=== PATIENT | female | born 1995 | race Caucasian/White ===

== ENCOUNTER 2019-02-03 11:14 | Observation (INO) | payer BC ==
[~2019-02-03] VITALS: Ht 167.6 cm; Wt 54.9 kg
--- OUTSIDE RECORDS SUMMARY | 2019-02-03 11:16 | XMS REPORT | Encounter Summary ---
Author Organization Unknown Address [address] [place] [address] Phone [phone] Reason for Visit Medical Complaint Instructions 1. Streptococcal sore throat strep throat: care instructions azithromycin 250 mg tablet rapid strep group A, throat Discussion Note Increase rest and drink plenty of fluids. May use acetaminophen (ex: Tylenol) or ibuprofen (ex: Motrin) as indicated on package for pain, bodyaches and/or fever. May use Chloraseptic throat spray or mentholated throat lozenges for soothing. Warm salt water gargles 3-4 times a day. (Mix cup warm water with Tsp of salt) Take medication(s) as prescribed for the indicated length of time. If no improvement in 3-5 days, or if new or worsening symptoms develop, follow up with a primary care physician. Start using a new toothbrush after second day of antibiotics. Plan of Care Patient Instructions See handout Reminders Provider Appointments None recorded. Lab Rapid Strep Group a, Throat 05/09/2017 [facility] Referral None recorded. Procedures None recorded. Surgeries None recorded. Imaging None recorded. Medications Name Start Date Adderall XR 30 mg capsule,extended release azithromycin 250 mg tablet TAKE 2 TABLETS (500 MG) BY ORAL ROUTE ONCE DAILY FOR 1 DAY THEN 1 TABLET (250 MG) BY ORAL ROUTE ONCE DAILY FOR 4 DAYS dicyclomine 20 mg tablet Gianvi (28) 3 mg-20 mcg tablet metronidazole 500 mg tablet Medications Administered None recorded. Vitals Height Weight BMI Blood Pressure 5 ft 5 in 122 lbs 20.3 kg/m2 114/72 mm[Hg] Lab Results Date Name Specimen Result Interpretation Description Value Range Status Address Rapid Strep Group a, Throat Result positive [facility]: [address] [place] [address] Swab Location Left and Right tonsillar pillars [facility]: [address] [place] [address] Allergies Code Code System Name Reaction Severity Onset Penicillins Hives Severe Problems None recorded. Procedures None recorded. Vaccine List None recorded. Social History Smoking Status Never Smoker Past Encounters 05/09/2017 Streptococcal Sore Throat Guillermo Carpenter, FEATHER BONER: [address], [place] [address], Ph. History of Present Illness Throat-Oral Complaint Reported By: Patient HPI: Location: throat. Quality: sore throat. Severity: pain level 9/10. Duration: 1 days. Onset/Timing: sudden. Context: no foreign travel, non-smoker, sick contact. Modifying factors: OTC medication. Associated Symptoms: no fever, no headache, no body aches, no sputum production, no shortness of breath, no wheezing, no change in number of pillows needed to sleep at night, no sweats, no significant weight gain, no significant weight loss, no morning cough, no vomiting, no diarrhea, no rash, no nausea, fever, sore throat Review of Systems:ROS as noted in the HPI Review of Systems Basic Reported By: Patient Physical Exam Adult Basic Reported By: Patient Constitutional: General Appearance: healthy-appearing, well-nourished, well-developed. Level of Distress: NAD. Ambulation: ambulating normally Psychiatric: Mental Status: active and alert. Orientation: to time, to place, to person Eyes: Lids and Conjunctivae: non-injected, no discharge, no pallor. Pupils: PERRLA. Corneas: grossly intact. EOM: EOMI. Lens: clear. Sclerae: non-icteric. Vision: acuity grossly intact Jtk-Dgcu-Ksgju-Throat: Ears: no lesions on external ear, no outer ear tenderness, EACs clear, TMs clear. Hearing: no hearing loss. Nose: no lesions on external nose, nares patent, no septal deviation, nasal passages clear, no sinus tenderness, no nasal discharge. Lips, Teeth, and Gums: no mouth or lip ulcers, no bleeding gums, normal dentition. Oropharynx: moist mucous membranes, erythema, exudates, tonsils enlarged 2+ Neck: Neck: supple, trachea midline, no masses, FROM. Lymph Nodes: no cervical LAD, no supraclavicular LAD. Thyroid: no enlargement, non-tender, no nodules Lungs: Respiratory effort: no dyspnea, no tachypnea, no use of accessory muscles, no intercostal retractions. Auscultation: breath sounds normal Cardiovascular: Heart Auscultation: RRR, no murmurs Musculoskeletal:: Motor Strength and Tone: normal motor strength, normal tone. Joints, Bones, and Muscles: normal movement of all extremities Neurologic: Gait and Station: normal gait Skin: Inspection and palpation: no rash, no lesions, no ulcer, no abnormal nevi, no induration, no nodules, good turgor, no jaundice. Nails: normal
--- OUTSIDE RECORDS SUMMARY | 2019-02-03 11:16 | XMS REPORT | Continuity of Care Document ---
Author Author [facility] Interface Address Unknown Phone Unavailable Problems Problem Status Onset Date Classification Date Reported Comments Source Upper respiratory infection 01/18/2018 Diagnosis 01/18/2018 [facility] Tonsillitis 01/18/2018 Diagnosis 01/18/2018 [facility] Streptococcal sore throat 05/09/2017 Diagnosis 05/09/2017 [facility] Medications Medication Details Route Status Patient Instructions Ordering Provider Order Date Source 24 HR Amphetamine aspartate 7.5 MG / Amphetamine Sulfate 7.5 MG / Dextroamphetamine saccharate 7.5 MG / Dextroamphetamine Sulfate 7.5 MG Extended Release Oral Capsule [Adderall] Adderall XR 30 mg capsule,extended release TAKE ONE CAPSULE BY MOUTH EVERY DAY Active [facility] Azelastine hydrochloride 0.137 MG/ACTUAT Metered Dose Nasal [place] azelastine 137 mcg (0.1 %) nasal spray aerosol [place] 2 sprays in each nostril twice a day as needed Active [facility] Gianvi (28) 3 mg-20 mcg tablet Gianvi (28) 3 mg-20 mcg tablet Active [facility] Tretinoin 0.5 MG/ML Topical Cream tretinoin 0.05 % topical cream 1 APPLICATION TO AFFECTED AREA IN THE EVENING TO FACE ONCE A DAY PRN EXTERNALLY 30 DAYS Active [facility] Azithromycin 250 MG Oral Tablet Zithromax Z-Lamberto 250 mg tablet TAKE 2 TABLETS (500 MG) BY ORAL ROUTE ONCE DAILY FOR 1 DAY THEN 1 TABLET (250 MG) BY ORAL ROUTE ONCE DAILY FOR 4 DAYS Active [facility] Dicyclomine Hydrochloride 20 MG Oral Tablet dicyclomine 20 mg tablet Active [facility] Metronidazole 500 MG Oral Tablet metronidazole 500 mg tablet Active [facility] Allergies, Adverse Reactions, Alerts Substance Category Reaction Severity Reaction type Status Date Reported Comments Source Penicillins Hives Allergy to substance 05/09/2017 [facility] Immunizations Immunization Date Given Site Status Last Updated Comments Source Results Order Name Results Value Reference Range Date Interpretation Comments Source RESULT negative 01/17/2018 [facility] SWAB LOCATION Left and Right tonsillar pillars 01/17/2018 [facility] RESULT positive 05/09/2017 [facility] SWAB LOCATION Left and Right tonsillar pillars 05/09/2017 [facility] Vital Signs Vital Sign Value Date Comments Source Diastolic (mm Hg) 68 01/17/2018 [facility] Height 65 01/17/2018 [facility] Systolic (mm Hg) 110 01/17/2018 [facility] Weight 122 01/17/2018 [facility] Diastolic (mm Hg) 72 05/09/2017 [facility] Height 65 05/09/2017 [facility] Systolic (mm Hg) 114 05/09/2017 [facility] Weight 122 05/09/2017 [facility] Encounters Location Location Details Encounter Type Encounter Number Reason For Visit Attending Provider ADM Date DC Date Status Source [place] - [facility] - [id number] LINO Del RosarioP: [address] [place] [address], Ph. [id number] Guillermo Carpenter 05/09/2017 [facility] [place] [id number]ne[facility]: [address] [place] [address], Ph. [id number] Nila Berrios 01/17/2018 [facility] Procedures Procedure Code Date Perfomer Comments Source
--- OUTSIDE RECORDS SUMMARY | 2019-02-03 11:16 | XMS REPORT | Encounter Summary ---
Author Organization Unknown Address [address] [place] [address] Phone [phone] Reason for Visit Medical Complaint Instructions 1. Tonsillitis Zithromax Z-Lamberto 250 mg tablet 2. Upper respiratory infection azelastine 137 mcg (0.1 %) nasal spray aerosol rapid strep group A, throat Discussion Note *Use nasal saline rinse(Mani Med or Simply Saline): Use 2-3 times a day as needed for nasal congestion. *Drink plenty of fluids to stay hydrated. *Avoid known allergens. If you are not certain what is causing your allergies, [facility] offers allergy testing. *Take medication(s) as prescribed for the indicated length of time. *Drink plenty of fluids and get lots of rest. *May gargle with SCOPE OTC as needed. *May use acetaminophen (ex: Tylenol) or ibuprofen (ex: Motrin) as indicated on package for pain, bodyaches and/or fever. *May use Chloraseptic throat spray or mentholated throat lozenges for soothing. *Warm salt water gargles 3-4 times a day. (Mix cup warm water with Tsp of salt) *Take medication(s) as prescribed for the indicated length of time. *If no improvement in 3-5 days, or if new or worsening symptoms develop, follow up with a primary care physician. *Start using a new toothbrush. (If symptoms do not improve in 2 days or if throat pain worsens significantly or have white pus, start Zpak.) Patient educational handouts: No information available. Plan of Care Reminders Provider Appointments None recorded. Lab Rapid Strep Group a, Throat 01/17/2018 [facility] Referral None recorded. Procedures None recorded. Surgeries None recorded. Imaging None recorded. Medications Name Start Date Adderall XR 30 mg capsule,extended release TAKE ONE CAPSULE BY MOUTH EVERY DAY azelastine 137 mcg (0.1 %) nasal spray aerosol [place] 2 sprays in each nostril twice a day as needed Richard (28) 3 mg-20 mcg tablet tretinoin 0.05 % topical cream 1 APPLICATION TO AFFECTED AREA IN THE EVENING TO FACE ONCE A DAY PRN EXTERNALLY 30 DAYS Zithromax Z-Lamberto 250 mg tablet TAKE 2 TABLETS (500 MG) BY ORAL ROUTE ONCE DAILY FOR 1 DAY THEN 1 TABLET (250 MG) BY ORAL ROUTE ONCE DAILY FOR 4 DAYS Medications Administered None recorded. Vitals Height Weight BMI Blood Pressure 5 ft 5 in 122 lbs 20.3 kg/m2 110/68 mm[Hg] Lab Results Date Name Specimen Result Interpretation Description Value Range Status Address 01/17/2018 Rapid Strep Group a, Throat Result negative [facility]: [address] [place] [address] Swab Location Left and Right tonsillar pillars [facility]: [address] [place] [address] Allergies Code Code System Name Reaction Severity Status Onset Penicillins Hives Severe Active Problems None recorded. Procedures None recorded. Vaccine List None recorded. Social History Smoking Status Never Smoker Past Encounters 01/17/2018 Tonsillitis; Upper Respiratory Infection January MAGGIE BerriosC: [address] [place] [address], Ph. History of Present Illness Throat-Oral Complaint Reported By: Patient HPI: Location: throat. Quality: sore throat. Severity: moderate. Duration: 3 days. Onset/Timing: gradual. Context: no foreign travel, non-smoker, sick contact. [...] no rash, no nausea, fever, sore throat Note:Pt. is a 22 y.o. female here with sore throat x 3 days Pt. did not have flu shot [id number]. Review of Systems Basic Reported By: Patient Constitutional: Constitutional: fever Kjbq-Viam-Vspmb-Throat: Ears: no ear complaints. Nose: nose/sinus problems. Mouth/Throat: no bleeding gums, no mouth complaints, no teeth problems, sore throat Cardiovascular: Cardiovascular: no chest pain, no shortness of breath, no known heart murmur Respiratory: Respiratory: no cough, no wheezing, no shortness of breath Gastrointestinal: Gastrointestinal: no abdominal pain, no vomiting / diarrhea Physical Exam Adult Basic, Adult Female Complete, 14-21 Yr Females Reported By: Patient Constitutional: General Appearance: healthy-appearing, well-nourished, well-developed. Level of Distress: NAD. Ambulation: ambulating normally Psychiatric: Mental Status: active and alert, normal affect, normal mood. Orientation: to time, to place, to person Eyes: Lids and Conjunctivae: non-injected, no discharge, no pallor. Pupils: PERRLA, equal size, round, reactive to light. Corneas: grossly intact. EOM: EOMI, normal cover/uncover test. Lens: clear. Sclerae: non-icteric Qtg-Wcrv-Czbvg-Throat: Ears: no lesions on external ear, no outer ear tenderness, EACs clear; TM-mild dull bilaterally. Hearing: no hearing loss. Nose: no lesions on external nose, nares patent, no septal deviation, nasal passages clear, no sinus tenderness, post nasal drip; turbinates- pink bilaterally. Lips, Teeth, and Gums: no mouth or lip ulcers, no bleeding gums, normal dentition. Oropharynx: moist mucous membranes, no exudates, tonsils not enlarged, erythema Neck: Neck: supple, trachea midline, no masses, FROM. Lymph Nodes: anterior cervical LAD Lungs: Respiratory effort: no dyspnea, no tachypnea, no use of accessory muscles, no intercostal retractions. Auscultation: breath sounds normal, clear to auscultation, no wheezing, no rales/crackles, no rhonchi, no retractions Cardiovascular: Heart Auscultation: RRR, no murmurs, no gallops, no rub. Apical impulse: not displaced. Rate and rhythm: regular Skin: Inspection and palpation: no rash, no lesions, no ulcer, no abnormal nevi, no induration, no nodules, good turgor, no jaundice. Nails: normal. Color and Pigmentation: no acne, no pustules
[2019-02-03] MEDS ORDERED: SODIUM CHLORIDE 0.9% 1000ML 4,000 ML IV STA (11:27)
[2019-02-03 11:46] LABS: BILIRUBIN,URINE NEGATIVE (NEGATIVE); CLARITY,URINE SL CLOUDY (CLEAR); COLOR,URINE YELLOW (YELLOW); KETONES,URINE NEGATIVE (NEGATIVE); LEUKOCYTE ESTERASE ,URINE NEGATIVE (NEGATIVE); NITRITE,URINE NEGATIVE (NEGATIVE); PROTEIN,URINE DIPSTICK TRACE (NEGATIVE); URINE UROBILINOGEN 0.2 mg/dL (0.2 - 1)
[2019-02-03 11:53] LABS: BASOPHILS % 0.4 % (0.0-1.0); EOSINOPHILS # (AUTO) 0.1 (0.0-0.4); EOSINOPHILS % 1.3 % (0.0-6.0); HEMATOCRIT 42.5 % (34.2-44.1); HEMOGLOBIN 14.2 g/dL (12.0-16.0); LYMPHOCYTES # (AUTO) 2.4 (1.0-3.2); LYMPHOCYTES % 24.3 % (18.0-39.1); MEAN CORPUSCULAR HEMOGLOBIN 30.5 pg (28-32); MEAN CORPUSCULAR HGB CONC 33.4 g/dL (31-35); MEAN CORPUSCULAR VOLUME 91.4 fL (81-99); MONOCYTES # (AUTO) 0.4 (0.2-0.8); MONOCYTES % 3.9 % (4.4-11.3); NEUTROPHILS # (AUTO) 6.8 (2.1-6.9); NEUTROPHILS % 69.5 % (38.7-80.0); PLATELET COUNT 308 x10e3/uL (140-360); RED BLOOD COUNT 4.65 x10e6/uL (3.6-5.1); RED CELL DISTRIBUTION WIDTH 11.9 % (11.7-14.4)
[2019-02-03 12:11] LABS: BACTERIA,URINE MODERATE /HPF; EPITHELIAL CELLS,URINE MODERATE /LPF; RBC,URINE 0-5 /HPF (0-5); WBC,URINE (MAN) 0-5 /HPF (0-5)
[2019-02-03 12:17] LABS: ALANINE AMINOTRANSFERASE 637 IU/L (0-55); ALBUMIN 3.1 g/dL (3.5-5.0); ALBUMIN/GLOBULIN RATIO 0.7 (0.8-2.0); ALKALINE PHOSPHATASE 73 IU/L (40-150); ANION GAP 12.7 mmol/L (8-16); BLOOD UREA NITROGEN 13 mg/dL (7-26); BUN/CREATININE RATIO 18 (6-25); CARBON DIOXIDE 29 mmol/L (22-29); CHLORIDE 100 mmol/L (98-107); CHOL/HDL RATIO 2.8 (3.0-3.6); CHOLESTEROL 230 MD/DL (0-199); CREATININE, SERUM 0.74 mg/dL (0.57-1.11); EST GLOMERULAR FILTRATION RATE > 60 ML/MIN (60-); GLUCOSE 79 mg/dL (74-118); HDL CHOLESTEROL 81 MG/DL (40-60); LDL CHOLESTEROL 113 MG/DL (60-130); POTASSIUM 3.7 mmol/L (3.5-5.1); SODIUM 138 mmol/L (136-145); TRIGLYCERIDES 179 MG/DL (0-149)
[2019-02-03 12:20] LABS: PREGNANCY TEST, URINE NEGATIVE (NEGATIVE)
--- NOTE | 2019-02-03 12:24 | NUR ---
3RD LITER OF IVF HUNG AND INFUSING WITH NO PROBLME
--- NOTE | 2019-02-03 12:30 | NUR ---
4TH LITER OF N.S. BOLUS INFUSING
[2019-02-03] MEDS ORDERED: GIANVI 3 MG-0.1 EACH (12:59)
[2019-02-03] MEDS ORDERED: ADDERALL XR 3030 MG PO (12:59)
[2019-02-03 13:00] VITALS: BP 125/78
[2019-02-03 13:10] VITALS: BP 125/78
[2019-02-03] MEDS: SODIUM CHLORIDE 0.9% 1000ML 2,000 ML IV SCH ×2 (15:00→20:33)
[2019-02-03 16:00] VITALS: BP 120/68
--- NOTE | 2019-02-03 18:55 | NUR ---
rounded with assembler 1st shift nurse, patient aware of change. call brownlee within reach and bed in lowest position.
--- NOTE | 2019-02-03 19:01 | NUR ---
Report received and walking rounds complete. Pt A&O and in no apparent distress. Pt on room and tele. All safety measures ensured, bed alarm on, and call brownlee near. Pt encouraged to use call brownlee for assistance.
[2019-02-03 20:00] VITALS: BP 136/69
[2019-02-04] VITALS (7 sets, daily range): BP systolic 101–160; BP diastolic 55–72
[2019-02-04] MEDS: SODIUM CHLORIDE 0.9% 1000ML 2,000 ML IV SCH ×3 (04:21→20:35)
[2019-02-04] MEDS ORDERED: KETOROLAC TROMETHAMINE 30 MG/ML VIAL IV ONE (05:45)
[2019-02-04 06:40] LABS: ALANINE AMINOTRANSFERASE 342 IU/L (0-55); ALBUMIN 2.2 g/dL (3.5-5.0); ALBUMIN/GLOBULIN RATIO 0.9 (0.8-2.0); ALKALINE PHOSPHATASE 51 IU/L (40-150); ANION GAP 8.7 mmol/L (8-16); BLOOD UREA NITROGEN 9 mg/dL (7-26); BUN/CREATININE RATIO 16 (6-25); CALCIUM 7.7 mg/dL (8.4-10.2); CARBON DIOXIDE 21 mmol/L (22-29); CHLORIDE 113 mmol/L (98-107); CREATININE, SERUM 0.55 mg/dL (0.57-1.11); EST GLOMERULAR FILTRATION RATE > 60 ML/MIN (60-); GLUCOSE 89 mg/dL (74-118); POTASSIUM 3.7 mmol/L (3.5-5.1); SODIUM 139 mmol/L (136-145)
--- NOTE | 2019-02-04 06:51 | NUR ---
Report given and walking rounds complete. Pt sleeping in bed and in no apparent distress. All safety measures ensured.
--- NOTE | 2019-02-04 06:52 | NUR ---
Handoff report and walking rounds with outgoing ticket collector or usher nurse. Pt sleeping, easily arousable, and denies any c/o.
--- NOTE | 2019-02-04 12:05 | NUR ---
patient arrived on floor via wheelchair. call brownlee within reach and bed in lowest position.
--- NOTE | 2019-02-04 12:14 | NUR ---
CASE MANAGEMENT INITIAL ASSESSMENT Supervisor Press Room to bedside to discuss plan of care with patient/family. CM/SW role and care transitions discussed. Anticipated discharge plan discussed along with duration of care. CM/SW discussed patients right to make decisions in care. CM/SW work hours given. verified demographics Patient lives: HER PARENTS Admit/Transfer: ED Hospital/ER visits since last admit:NONE POA/Emergency contact: DAD: RACIEL MANDUJANO [phone] Current/Previous Home Health: NONE PCP/Follow-up Care: DR. TOMMY OSULLIVAN Current/Previous DME: NONE Medications (referring to index hospitalization or the first time you were in the hospital) NOT ON ANY MEDICATIONS a. Were changes made in your medications when you were in the hospital on [date of index hospitalization]? Yes No Not sure Explain: Note: If no or not sure, please skip to question d b. Did you understand the changes? Yes No Explain: c. Were you able to obtain your new medications right away? Yes No n/a SNF only Explain: d. Were you able to take your medications like the doctor wanted you to? Yes No Explain: e. Did the hospital give you an accurate, easy to understand list of medications when you left? Yes No n/a SNF only Explain: Scale of 1-10 how comfortable does patient feel with disease management in outpatient settin Other Services: N/A Employment Status: EMPLOYED Areas of Concerns: NONE Referral Needs: NONE Education Needs:NONE IMM/VELAZQUEZ given and signed (if applicable): N/A Goal for discharge: TO RETURN HOME CM/SW left business card at the bedside with contact information. Name and number was also written on the patients whiteboard. Patient verbalized understanding of discussion. CM will follow-up with ongoing discharge and transition of care needs.
--- NOTE | 2019-02-04 18:40 | NUR ---
rounded with night clerk nurse, patient aware of change and in no distress. call brownlee within reach and bed in lowest position.
--- NOTE | 2019-02-04 20:56 | NUR ---
Assessment done.no resp.distress.no pain voiced.stable condition.voided.bed locked and in lowest position.phone and call light within reach.instructed to call for assistance as needed.
[2019-02-05] VITALS: BP 103/64
[2019-02-05 04:00] VITALS: BP 101/61
[2019-02-05] MEDS: SODIUM CHLORIDE 0.9% 1000ML 2,000 ML IV SCH (04:31)
[2019-02-05 06:42] LABS: ALANINE AMINOTRANSFERASE 295 IU/L (0-55); ALBUMIN 2.2 g/dL (3.5-5.0); ALBUMIN/GLOBULIN RATIO 0.8 (0.8-2.0); ALKALINE PHOSPHATASE 46 IU/L (40-150); ANION GAP 9.7 mmol/L (8-16); BLOOD UREA NITROGEN 8 mg/dL (7-26); BUN/CREATININE RATIO 14 (6-25); CALCIUM 8.3 mg/dL (8.4-10.2); CARBON DIOXIDE 25 mmol/L (22-29); CHLORIDE 108 mmol/L (98-107); CREATININE, SERUM 0.59 mg/dL (0.57-1.11); EST GLOMERULAR FILTRATION RATE > 60 ML/MIN (60-); GLUCOSE 85 mg/dL (74-118); POTASSIUM 3.7 mmol/L (3.5-5.1); SODIUM 139 mmol/L (136-145)
[2019-02-05 06:44] LABS: CREATINE KINASE 6326 IU/L (29-168)
--- NOTE | 2019-02-05 06:50 | NUR ---
Report given to the oncoming rn.walking rounds done.stable condition.
[2019-02-05 07:10] VITALS: BP 105/63
[2019-02-05 07:27] VITALS: BP 105/63
--- NOTE | 2019-02-05 09:25 | NUR ---
patient alert and oriented. discharge instructions given to patient and she verbalized understanding. IV discontinued, catheter in tact and small dressing applied. patient to be escorted from floor to personal auto for grandparents to drive home.
--- NOTE | 2019-02-06 05:33 | Discharge Summary ---
DISCHARGE DIAGNOSES: 1. Rhabdomyolysis. 2. Elevated liver function tests. 3. Right leg pain. HISTORY OF PRESENT ILLNESS AND HOSPITAL COURSE: See hospital chart for full details. The patient is a very young lady, doing well extreme cycling class, there was some increased muscle aches, but mostly in the right lower extremity. Her outside study shows significant rhabdomyolysis and elevated liver function tests, so she is admitted, placed on IV fluids and observation. The patient made a significant improvement, who stated that her CK levels are tremendously improved at time of discharge, as well as her liver function tests came down from an outpatient in the 1000s down to 200s and was improving each day. Her right leg pain significantly improved even after a dose of Toradol where she is able to ambulate prior to discharge without any pain. She is to follow up with me in about 3-4 days to repeat laboratory data, but otherwise the patient did very well and she was discharged home in good condition. MD NGA Byrnes/MOHSEN /[id number]
== END 2019-02-05 09:29 | disposition home or self-care (01) ==
LOC: ER 11:14 → ERHOLD 12:29 → IMCU 12:50 → MED/SURG 02-04 12:04
PROVIDERS: ADMIT Internal Medicine; ATTEND Internal Medicine
DX: M79.604 Pain in right leg (principal); M62.82 Rhabdomyolysis; R79.89 Other specified abnormal findings of blood chemistry
CPT/HCPCS: 36415 ×3; 80053 ×3; 80061; 81001; 81025; 82550 ×3; 85025; 99284; G0378 ×3; J1885; J7030 ×3